=== PATIENT | female | born 1985 | race Caucasian/White ===

== ENCOUNTER 2019-04-18 11:46 | Outpatient (REF) | payer MEDICAID, SELFPAY ==
[2019-04-18 21:55] LABS: TSH 1.84 uIU/mL (0.36-3.74)
== END 2019-04-18 12:06 ==
LOC: NCHCN 11:46
PROVIDERS: PCP Nurse Practitioner Family; Visit Provider Nurse Practitioner Family
DX: Z68.43 Body mass index [BMI] 50.0-59.9, adult (principal); Z13.29 Encounter for screening for other suspected endocrine disorder
CPT/HCPCS: 84443

== ENCOUNTER 2019-10-24 14:16 | Outpatient (REF) | payer MEDICAID, SELFPAY ==
[2019-10-24 21:52] LABS: Hemoglobin A1C 5.7 % (<5.7)
== END 2019-10-24 14:36 ==
LOC: NCHCN 14:16
PROVIDERS: PCP Nurse Practitioner Family; Visit Provider Nurse Practitioner Family
DX: R73.03 Prediabetes (principal); Z68.43 Body mass index [BMI] 50.0-59.9, adult
CPT/HCPCS: 82565; 83036

== ENCOUNTER 2020-04-30 09:29 | Outpatient (REF) | payer MEDICAID, SELFPAY ==
--- NOTE | 2020-04-30 09:00 | PAPFT_PTH ---
PATIENT: GEN QUISPE LOC: [facility] U#:[id number] AGE/SX: 34/F ROOM: RE04/30/[address]: Elise Romo : 1985 BED: DIS: 04/30/2020 SPEC #: [id number] RECD: 04/30/20 12:48 STATUS: GABRIELLE JOSHI #: [id number] CHER: 04/30/20 09:[address]: Elise Romo DEPT: [facility] Cytology RECD BY: Sweta Muirllo Tissues: 1 - CX/ENDOCX FOR PAP SMEARS Procedures: PAP THIN PREP/[facility] Screening HPV DNA PROBE Comments: [id number] (CHLAMYDIA/GC)
[2020-05-03 15:00] LABS: Chlamydia Result Negative (Negative); GC Result Negative (Negative)
== END 2020-04-30 09:30 | disposition home or self-care (01) ==
LOC: NCHCN 09:29
PROVIDERS: PCP Nurse Practitioner Family; Visit Provider Nurse Practitioner Family
DX: Z11.3 Encounter for screening for infections with a predominantly sexual mode of transmission (principal); Z12.4 Encounter for screening for malignant neoplasm of cervix; Z11.51 Encounter for screening for human papillomavirus (HPV)
CPT/HCPCS: 87491; 87591; 88142; 87624